=== PATIENT | female | born 1975 | race Hispanic/Latino ===

== ENCOUNTER 2021-10-17 12:12 | Emergency (ER) | payer MEDICAID ==
[2021-10-17 12:40] VITALS: BP 128/89
--- NOTE | 2021-10-17 13:12 | Emergency Department Report ---
- General Chief complaint: Skin Rash Stated complaint: LT HAND BRUSE Time Seen by Provider: 10/17/21 13:10 Source: patient Mode of arrival: Ambulatory Limitations: No Limitations - History of Present Illness Initial comments: Patient is a 46-year-old that comes to us from [place]. She has a rash on her left hand. She states that it started after a fall. But it looks like it has a secondary infection so [facility] [facility] sent her here for medical clearance. Differential diagnosis would be contact dermatitis, with secondary infection Patient has no systemic symptoms. She has no fever or chills. No hypotension or tachycardia. She has full range of motion of the hand. She is neurovascularly and peripheral vascularly intact. MD complaint: rash -: Gradual, days(s) Tetanus Up to Date: yes Severity scale (0 -10): 0 Improves with: none Worsens with: none Context: none Treatments Prior to Arrival: none - Related Data Previous Rx's Medication Instructions Recorded Last Taken Type Neomy/Baci/Polymyx B Opth Oint 1 inch TP BID #1 tube 10/17/21 Unknown Rx [Neosporin] Sulfamethoxazole/Trimethoprim 1 each PO BID #10 tablet 10/17/21 Unknown Rx [Bactrim DS TAB] Allergies Allergy/AdvReac Type Severity Reaction Status Date / Time No Known Allergies Allergy Verified 10/17/21 13:27 Abscess Boil HPI - HPI Chief Complaint: Skin Rash Stated Complaint: LT HAND BRUSE Time Seen by Provider: 10/17/21 13:10 Home Medications: Previous Rx's Medication Instructions Recorded Last Taken Type Neomy/Baci/Polymyx B Opth Oint 1 inch TP BID #1 tube 10/17/21 Unknown Rx [Neosporin] Sulfamethoxazole/Trimethoprim 1 each PO BID #10 tablet 10/17/21 Unknown Rx [Bactrim DS TAB] Allergies/Adverse Reactions: Allergies Allergy/AdvReac Type Severity Reaction Status Date / Time No Known Allergies Allergy Verified 10/17/21 13:27 ED Review of Systems ROS: Stated complaint: LT HAND BRUSE Other details as noted in HPI Comment: All other systems reviewed and negative ED Past Medical Hx - Past Medical History Previous Medical History?: Yes Additional medical history: MRSA, substance abuse - Surgical History Past Surgical History?: Yes Hx Cholecystectomy: Yes Additional Surgical History: , endometrial tumor removed, cervical spine sx - Family History Family history: no significant - Social History Smoking Status: Never Smoker Substance Use Type: None - Medications Home Medications: Home Medications Medication Instructions Recorded Confirmed Last Taken Type Neomy/Baci/Polymyx B Opth Oint 1 inch TP BID #1 tube 10/17/21 Unknown Rx [Neosporin] Sulfamethoxazole/Trimethoprim 1 each PO BID #10 tablet 10/17/21 Unknown Rx [Bactrim DS TAB] ED Physical Exam - General Limitations: No Limitations General appearance: alert, in no apparent distress - Head Head exam: Present: atraumatic, normocephalic - Eye Eye exam: Present: normal appearance - ENT ENT exam: Present: mucous membranes moist - Neck Neck exam: Present: normal inspection - Respiratory Respiratory exam: Present: normal lung sounds bilaterally. Absent: respiratory distress - Cardiovascular Cardiovascular Exam: Present: regular rate, normal rhythm. Absent: systolic murmur, diastolic murmur, rubs, gallop - GI/Abdominal GI/Abdominal exam: Present: soft, normal bowel sounds - Extremities Exam Extremities exam: Present: normal inspection - Back Exam Back exam: Present: normal inspection - Neurological Exam Neurological exam: Present: alert, oriented X3 - Psychiatric Psychiatric exam: Present: normal affect, normal mood - Skin Skin exam: Present: warm, dry, intact, normal color. Absent: rash ED Course Vital Signs 10/17/21 12:35 Temperature 97.8 F Pulse Rate 64 Respiratory 12 Rate Blood Pressure 128/89 O2 Sat by Pulse 100 Oximetry ED Medical Decision Making - Medical Decision Making Vital Signs 10/17/21 12:35 Temperature 97.8 F Pulse Rate 64 Respiratory 12 Rate Blood Pressure 128/89 O2 Sat by Pulse 100 Oximetry Patient has a history of MRSA. We will treat patient with systemic antibiotics and localized cream. Vital signs are normal. She has no hypotension tachycardia. No fever. Patient has no systemic symptoms Medically cleared for return to [facility]. Discharge home with discharge plan of care including diet, activity medications and follow-up. She verbalizes understanding of plan of care - Differential Diagnosis Wound to the left dorsal surface of her hand with secondary infection versu Critical care attestation.: If time is entered above; I have spent that time in minutes in the direct care of this critically ill patient, excluding procedure time. ED Disposition Clinical Impression: Secondary infection of skin Disposition: 01 HOME / SELF CARE / HOMELESS Is pt being admited?: No Does the pt Need Aspirin: No Condition: Stable Additional Instructions: Referral given to patient for nonmedical emergencies. Please use primary care. Bactrim as ordered until gone. Wound should be kept clean and dry. Apply Neosporin twice a day with a gauze dressing Diet and activity as tolerated Follow-up with PCP next week to make sure she is improving. Referral below Patient is not contagious and may return to [place]. Prescriptions: Sulfamethoxazole/Trimethoprim [Bactrim DS TAB] 1 each PO BID #10 tablet Neomy/Baci/Polymyx B Opth Oint [Neosporin] 1 inch TP BID #1 tube Referrals: BARBARA ORTEGA MD [Staff Physician] - 3-5 Days Time of Disposition: 13:17
[2021-10-17] MEDS ORDERED: NEOMY 3.5 MG/BACIT 400 UNITS/POLY B 5000 UNITS/GM OINT PACKET TP SCH (13:30)
== END 2021-10-17 15:10 | disposition home or self-care (01) ==
LOC: ED 12:12
DX: L08.9 Local infection of the skin and subcutaneous tissue, unspecified (principal); Z90.49 Acquired absence of other specified parts of digestive tract
CPT/HCPCS: 99282